=== PATIENT | male | born 1945 | race Caucasian/White ===

== ENCOUNTER 2018-10-22 13:06 | Outpatient (CLI) | payer MEDICARE ==
[2018-10-22 14:34] LABS: BASOPHILS # (AUTO) 0.02 x10^3/uL (0-0.1); BASOPHILS % (AUTO) 0 % (0-1); EOSINOPHILS % (AUTO) 4 % (1-7); LYMPHOCYTES # (AUTO) 2.07 x10^3/uL (1-3.4); LYMPHOCYTES % (AUTO) 30 % (22-44); MD NO; MEAN CORPUSCULAR HEMOGLOBIN 31.1 pg (27.5-34.5); MEAN CORPUSCULAR HGB CONC 34.6 g/dL (33.2-36.2); MEAN CORPUSCULAR VOLUME 89.8 fL (81-97); MEAN PLATELET VOLUME 8.1 fL (7.4-10.4); MONOCYTES # (AUTO) 0.55 x10^3/uL (0.2-0.8); MONOCYTES % (AUTO) 8 % (2-9); NEUTROPHILS # (AUTO) 4.05 x10^3/uL (1.8-6.8); NEUTROPHILS % (AUTO) 58 % (42-75); PLATELET COUNT 206 x10^3/uL (130-400); RED BLOOD COUNT 4.54 x10^6/uL (4.38-5.82); RED CELL DISTRIBUTION WIDTH 13.7 % (9.4-14.8)
[2018-10-22 14:38] LABS: MICROSCOPIC NOT IND
[2018-10-22 14:40] LABS: INTERNATIONAL NORMALIZED RATIO 0.99 (0.93-1.1); PROTHROMBIN TIME 10.4 Seconds (9.6-11.5)
[2018-10-22 14:41] LABS: CULTURE INDICATED? NO
[2018-10-22 14:43] LABS: ALANINE AMINOTRANSFERASE 34 U/L (12-78); ALBUMIN 3.9 g/dL (3.4-5.0); ANION GAP 7 mmol/L (5-15); CALCIUM 8.8 mg/dL (8.5-10.1); CHLORIDE 105 mmol/L (98-107); CREATININE 1.38 mg/dL (0.7-1.3)
[2018-10-22 14:45] LABS: ALKALINE PHOSPHATASE 74 U/L (45-117); BILIRUBIN,TOTAL 0.7 mg/dL (0.2-1.0); TOTAL PROTEIN 7.1 g/dL (6.4-8.2)
[2018-10-28] MEDS ORDERED: ROSU10TA2 PO (08:30)
[2018-10-28] MEDS ORDERED: OMEP40CA6 PO (08:30)
[2018-10-28] MEDS ORDERED: TERA1CAP3 PO (08:30)
[2018-10-28] MEDS ORDERED: METF500T17 PO (08:30)
== END 2018-10-22 23:59 | disposition home or self-care (01) ==
LOC: STAR 13:06
PROVIDERS: ATTEND Neurological Surgery
DX: Z01.818 Encounter for other preprocedural examination (principal); M43.16 Spondylolisthesis, lumbar region; M48.062 Spinal stenosis, lumbar region with neurogenic claudication; Z98.890 Other specified postprocedural states
CPT/HCPCS: 36415; 71046; 80053; 81003; 85025; 85610; 85730; 93005

== ENCOUNTER 2018-10-29 05:13 | Inpatient (IN) | payer MEDICARE ==
[2018-10-22 14:53] VITALS: BP 169/98
[~2018-10-29] VITALS: Ht 177.8 cm; Wt 55.4 kg
[~2018-10-29 05:13] MED LIST: METF500T17 PO; OMEP40CA6 PO; ROSU10TA2 PO; TERA1CAP3 PO
[2018-10-29] MEDS ORDERED: LACTATED RINGERS 1,000 ML IV SCH (06:01)
[2018-10-29] MEDS ORDERED: MICROFIBRILLAR COLLAGEN 1 GM TP ONE (06:35)
[2018-10-29] MEDS ORDERED: BUPIVACAINE/EPI 0.5% 1:200K ONE (06:35)
[2018-10-29] MEDS ORDERED: VANCOMYCIN 1,000 MG ONE (06:36)
[2018-10-29] MEDS ORDERED: BACITRACIN 50,000 UNIT ONE (06:36)
[2018-10-29] MEDS ORDERED: THROMBIN 5,000 UNIT VIAL TP ONE (06:36)
[2018-10-29] MEDS ORDERED: FENTANYL PF 250 MCG/5ML ONE (06:52)
[2018-10-29] MEDS ORDERED: MIDAZOLAM 1 MG/ML, 2ML ONE (06:52)
[2018-10-29] MEDS ORDERED: PROPOFOL 50 ML ONE (06:55)
[2018-10-29] MEDS ORDERED: ROCURONIUM 10 MG/ML,10ML ONE (06:57)
[2018-10-29] MEDS ORDERED: SUCCINYLCHOLINE 20 MG/ML, 10ML ONE (06:57)
[2018-10-29] MEDS ORDERED: ACETAMINOPHEN 500 MG TABLET PO ONE (07:00)
[2018-10-29] MEDS ORDERED: GABAPENTIN 300 MG CAPSULE PO ONE (07:00)
[2018-10-29] MEDS ORDERED: MEPERIDINE/PF 25MG/0.5ML IVPush PRN (08:00)
[2018-10-29] MEDS ORDERED: OXYcodone 5 MG/5 ML ORAL.SOL UDC PO PRN (08:00)
[2018-10-29] MEDS ORDERED: PROMETHAZINE 25 MG/ML, 1ML IV PRN (08:00)
[2018-10-29] MEDS ORDERED: MIDAZOLAM 1 MG/ML, 2ML IV PRN (08:00)
[2018-10-29] MEDS ORDERED: ALBUTEROL/IPRATROPIUM 2.5MG/0.5MG, 3 ML NPPB PRN (08:00)
[2018-10-29] MEDS ORDERED: ONDANSETRON ODT 8 MG PO PRN (08:00)
[2018-10-29] MEDS ORDERED: METOPROLOL 1 MG/ML, 5ML IV PRN (08:00)
[2018-10-29] MEDS ORDERED: hydrALAzine 20 MG/ML, 1ML IV PRN (08:00)
[2018-10-29] MEDS ORDERED: CEFAZOLIN 1,000 MG ONE (08:15)
[2018-10-29] MEDS ORDERED: DEXAMETHASONE 4 MG/ML, 1ML ONE (08:15)
[2018-10-29] MEDS ORDERED: PROPOFOL 10 MG/ML, 20ML ONE (08:15)
[2018-10-29] MEDS ORDERED: ONDANSETRON 2MG/ML, 2ML ONE (08:15)
[2018-10-29] MEDS ORDERED: FENTANYL PF 100 MCG/2ML ONE (08:34)
[2018-10-29] MEDS ORDERED: OXYcodone 5 MG/5 ML ORAL.SOL UDC ONE (08:34)
[2018-10-29] MEDS ORDERED: HYDROmorphone 2 MG/ML, 1ML ONE (08:34)
[2018-10-29] MEDS: FENTANYL PF 100 MCG/2ML IV PRN ×2 (08:36→08:48)
[2018-10-29] MEDS: HYDROmorphone 2 MG/ML, 1ML IVPush PRN ×4 (08:38→09:13)
[2018-10-29] MEDS ORDERED: METHOCARBAMOL 750 MG TABLET ONE (09:03)
[2018-10-29] MEDS ORDERED: hydrALAzine 20 MG/ML, 1ML ONE (09:16)
[2018-10-29] MEDS ORDERED: MEPERIDINE/PF 25MG/ML,1ML ONE (09:16)
[2018-10-29] MEDS ORDERED: METHOCARBAMOL 750 MG TABLET PO ONE (09:30)
[2018-10-29 09:55] VITALS: BP 144/85
[2018-10-29] MEDS ORDERED: DIPHENHYDRAMINE 50 MG/ML, 1ML IM PRN (10:30)
[2018-10-29] MEDS ORDERED: HYDROmorphone 2 MG/ML, 1ML IM PRN (10:30)
[2018-10-29] MEDS ORDERED: DIPHENHYDRAMINE 50 MG CAPSULE PO PRN (10:30)
[2018-10-29] MEDS ORDERED: MAGNESIUM HYDROXIDE 8%, 30ML UDC PO PRN (10:30)
[2018-10-29] MEDS ORDERED: ONDANSETRON 2MG/ML, 2ML IV PRN (10:30)
[2018-10-29] MEDS ORDERED: BISACODYL 10 MG SUPP PR PRN (10:30)
[2018-10-29] MEDS ORDERED: PROMETHAZINE 25 MG/ML, 1ML IM PRN (10:30)
[2018-10-29] MEDS ORDERED: METHOCARBAMOL 750 MG TABLET PO PRN (10:30)
[2018-10-29] MEDS ORDERED: HYDROmorphone 2MG TABLET PO PRN (10:30)
[2018-10-29] MEDS: INSULIN REGULAR 100 UNITS/ML, 3ML VIAL SQ-INSULIN SCH ×3 (11:00→20:58)
[2018-10-29] MEDS ORDERED: OXYcodone/APAP 5/325MG TABLET PO PRN (11:30)
[2018-10-29] MEDS: NS + 20MEQ KCL 1,000 ML IV SCH ×2 (11:56→22:23)
[2018-10-29] MEDS: HYDROcodone/APAP 10/325 MG TABLET PO PRN ×2 (12:02→20:53)
[2018-10-29 13:40] VITALS: BP 136/82
[2018-10-29] MEDS: metFORMIN 500 MG TABLET PO SCH (17:11)
[2018-10-29] MEDS: CEFAZOLIN PMX 1GM/50ML 50 ML IVPB SCH (17:11)
[2018-10-29 19:57] VITALS: BP 120/78
[2018-10-29] MEDS: TERAZOSIN 1MG CAPSULE PO SCH (20:54)
[2018-10-29] MEDS: ATORVASTATIN 20 MG TABLET PO SCH (20:54)
[2018-10-30 00:16] VITALS: BP 113/53
[2018-10-30] MEDS: CEFAZOLIN PMX 1GM/50ML 50 ML IVPB SCH ×2 (00:58→16:51)
[2018-10-30 04:01] VITALS: BP 126/72
[2018-10-30 05:10] LABS: BASOPHILS # (AUTO) 0.04 x10^3/uL (0-0.1); BASOPHILS % (AUTO) 0 % (0-1); EOSINOPHILS # (AUTO) 0.02 x10^3/uL (0-0.4); EOSINOPHILS % (AUTO) 0 % (1-7); LYMPHOCYTES # (AUTO) 1.62 x10^3/uL (1-3.4); LYMPHOCYTES % (AUTO) 15 % (22-44); MD NO; MEAN CORPUSCULAR HEMOGLOBIN 30.4 pg (27.5-34.5); MEAN CORPUSCULAR HGB CONC 33.8 g/dL (33.2-36.2); MEAN CORPUSCULAR VOLUME 89.8 fL (81-97); MEAN PLATELET VOLUME 7.5 fL (7.4-10.4); MONOCYTES # (AUTO) 0.77 x10^3/uL (0.2-0.8); MONOCYTES % (AUTO) 7 % (2-9); NEUTROPHILS % (AUTO) 78 % (42-75); PLATELET COUNT 198 x10^3/uL (130-400); RED BLOOD COUNT 4.04 x10^6/uL (4.38-5.82); RED CELL DISTRIBUTION WIDTH 13.5 % (9.4-14.8)
[2018-10-30 05:21] LABS: ALBUMIN 3.2 g/dL (3.4-5.0); ANION GAP 6 mmol/L (5-15); CHLORIDE 112 mmol/L (98-107)
[2018-10-30 05:23] LABS: CREATININE 1.43 mg/dL (0.7-1.3)
[2018-10-30] MEDS: OMEPRAZOLE 20 MG CAPSULE.DR PO SCH (06:00)
[2018-10-30] MEDS: INSULIN REGULAR 100 UNITS/ML, 3ML VIAL SQ-INSULIN SCH ×4 (07:00→20:25)
[2018-10-30] MEDS: SENNA/DOCUSATE TABLET PO SCH (07:23)
[2018-10-30] MEDS: metFORMIN 500 MG TABLET PO SCH ×2 (07:24→16:49)
[2018-10-30 07:30] VITALS: BP 133/73
[2018-10-30] MEDS: NS + 20MEQ KCL 1,000 ML IV SCH ×3 (08:00→23:30)
[2018-10-30] MEDS ORDERED: FENTANYL PF 250 MCG/5ML ONE (08:40)
[2018-10-30] MEDS ORDERED: MIDAZOLAM 1 MG/ML, 2ML ONE (08:40)
[2018-10-30] MEDS ORDERED: PROPOFOL 50 ML ONE ×2 (08:47→10:35)
[2018-10-30] MEDS ORDERED: DEXAMETHASONE 4 MG/ML, 1ML ONE ×2 (08:51)
[2018-10-30] MEDS ORDERED: BUPIVACAINE/PF 0.5% ONE (09:21)
[2018-10-30] MEDS ORDERED: BACITRACIN 50,000 UNIT ONE (09:21)
[2018-10-30] MEDS ORDERED: EPINEPHRINE 1 MG/ML, 1ML ONE (09:21)
[2018-10-30] MEDS ORDERED: VANCOMYCIN 1,000 MG ONE (09:21)
[2018-10-30] MEDS ORDERED: THROMBIN 20,000 UNIT VIAL TP ONE (09:21)
[2018-10-30] MEDS ORDERED: CEFAZOLIN 1,000 MG ONE (09:26)
[2018-10-30] MEDS ORDERED: KETAMINE 10 MG/ML, 20ML ONE (09:26)
[2018-10-30] MEDS ORDERED: ONDANSETRON 2MG/ML, 2ML ONE (09:26)
[2018-10-30] MEDS ORDERED: PHENYLEPHRINE 10 MG/ML ONE (09:26)
[2018-10-30] MEDS ORDERED: ACETAMINOPHEN 325 MG TABLET PO PRN (10:30)
[2018-10-30] MEDS ORDERED: MEPERIDINE/PF 25MG/0.5ML IVPush PRN (10:30)
[2018-10-30] MEDS ORDERED: DIAZEPAM 5 MG/ML, 2ML IVPush PRN (10:30)
[2018-10-30] MEDS ORDERED: HALOPERIDOL 5 MG/ML IV PRN (10:30)
[2018-10-30] MEDS ORDERED: OXYcodone 5 MG/5 ML ORAL.SOL UDC PO PRN (10:30)
[2018-10-30] MEDS ORDERED: PROMETHAZINE 25 MG/ML, 1ML IV PRN (10:30)
[2018-10-30] MEDS ORDERED: hydrALAzine 20 MG/ML, 1ML IV PRN (10:30)
[2018-10-30] MEDS ORDERED: HYDROmorphone 2 MG/ML, 1ML IVPush PRN (10:30)
[2018-10-30] MEDS ORDERED: ACETAMINOPHEN 650 MG/20.3 ML UDC ONE (11:54)
[2018-10-30] MEDS ORDERED: METHOCARBAMOL 750 MG TABLET ONE (11:54)
[2018-10-30] MEDS ORDERED: FENTANYL PF 100 MCG/2ML ONE (11:54)
[2018-10-30] MEDS ORDERED: OXYcodone 5 MG/5 ML ORAL.SOL UDC ONE (11:54)
[2018-10-30] MEDS: FENTANYL PF 100 MCG/2ML IV PRN ×4 (12:00→12:27)
[2018-10-30 13:26] VITALS: BP 137/83
[2018-10-30 18:41] VITALS: BP 127/70
[2018-10-30] MEDS: HYDROcodone/APAP 10/325 MG TABLET PO PRN (20:24)
[2018-10-30] MEDS: ATORVASTATIN 20 MG TABLET PO SCH (20:24)
[2018-10-30] MEDS: TERAZOSIN 1MG CAPSULE PO SCH (20:25)
[2018-10-31 00:19] VITALS: BP 112/62
[2018-10-31] MEDS: CEFAZOLIN PMX 1GM/50ML 50 ML IVPB SCH (01:33)
[2018-10-31] MEDS: HYDROcodone/APAP 10/325 MG TABLET PO PRN ×3 (01:40→10:20)
[2018-10-31 04:16] VITALS: BP 137/71
[2018-10-31 05:17] LABS: BASOPHILS # (AUTO) 0.01 x10^3/uL (0-0.1); BASOPHILS % (AUTO) 0 % (0-1); EOSINOPHILS # (AUTO) 0.01 x10^3/uL (0-0.4); EOSINOPHILS % (AUTO) 0 % (1-7); LYMPHOCYTES # (AUTO) 1.87 x10^3/uL (1-3.4); LYMPHOCYTES % (AUTO) 20 % (22-44); MD NO; MEAN CORPUSCULAR HEMOGLOBIN 31.3 pg (27.5-34.5); MEAN CORPUSCULAR HGB CONC 34.6 g/dL (33.2-36.2); MEAN CORPUSCULAR VOLUME 90.4 fL (81-97); MEAN PLATELET VOLUME 7.8 fL (7.4-10.4); MONOCYTES # (AUTO) 0.72 x10^3/uL (0.2-0.8); MONOCYTES % (AUTO) 8 % (2-9); NEUTROPHILS % (AUTO) 72 % (42-75); PLATELET COUNT 182 x10^3/uL (130-400); RED CELL DISTRIBUTION WIDTH 13.7 % (9.4-14.8)
[2018-10-31] MEDS ORDERED: ENOXAPARIN 40 MG/0.4 ML SQ SCH (06:00)
[2018-10-31] MEDS: OMEPRAZOLE 20 MG CAPSULE.DR PO SCH (06:12)
[2018-10-31] MEDS: INSULIN REGULAR 100 UNITS/ML, 3ML VIAL SQ-INSULIN SCH ×2 (06:17→11:00)
[2018-10-31] MEDS: SENNA/DOCUSATE TABLET PO SCH (07:47)
[2018-10-31] MEDS: metFORMIN 500 MG TABLET PO SCH (07:47)
[2018-10-31 08:00] VITALS: BP 114/63
[2018-10-31] MEDS: NS + 20MEQ KCL 1,000 ML IV SCH (09:30)
[2018-10-31 09:45] VITALS: BP 118/68
[2018-10-31 11:36] VITALS: BP 129/74
[2018-10-31] MEDS ORDERED: HYDR-3307 PO (11:58)
[2018-10-31] MEDS ORDERED: METH750T87 PO (11:58)
[2018-10-31] MEDS ORDERED: SENN-31 PO (12:02)
== END 2018-10-31 12:41 | disposition home or self-care (01) | DRG 454 ==
LOC: ORIP 05:13 → 4NOR 09:53 → DCLOUNGE 10-31 12:26
PROVIDERS: ADMIT Neurological Surgery; ATTEND Neurological Surgery
PROC: 0QB00ZZ Excision of Lumbar Vertebra, Open Approach (ICD-10-PCS; 2018-10-29)
PROC: 01NB0ZZ Release Lumbar Nerve, Open Approach (ICD-10-PCS; 2018-10-29)
PROC: 4A11X4G Monitoring of Peripheral Nervous Electrical Activity, Intraoperative, External Approach (ICD-10-PCS; 2018-10-29)
PROC: 0SG0071 Fusion of Lumbar Vertebral Joint with Autologous Tissue Substitute, Posterior Approach, Posterior Column, Open Approach (ICD-10-PCS; principal; 2018-10-29 07:00)
PROC: 0SG00AJ Fusion of Lumbar Vertebral Joint with Interbody Fusion Device, Posterior Approach, Anterior Column, Open Approach (ICD-10-PCS; 2018-10-30)
PROC: 01NB0ZZ Release Lumbar Nerve, Open Approach (ICD-10-PCS; 2018-10-30)
PROC: 4A11X4G Monitoring of Peripheral Nervous Electrical Activity, Intraoperative, External Approach (ICD-10-PCS; 2018-10-30)
DX: M48.062 Spinal stenosis, lumbar region with neurogenic claudication (principal); N17.9 Acute kidney failure, unspecified; M51.16 Intervertebral disc disorders with radiculopathy, lumbar region; M25.78 Osteophyte, vertebrae; I10 Essential (primary) hypertension; E11.9 Type 2 diabetes mellitus without complications; G47.33 Obstructive sleep apnea (adult) (pediatric); K21.9 Gastro-esophageal reflux disease without esophagitis; Z98.1 Arthrodesis status
CPT/HCPCS: 36415; 72100; 80048; 82040; 82962; 85025; 86850; 86900; C1713; C1729; G0378; J0171; J0690; J1100; J1170; J1650; J1815; J2175; J2250; J2405; J2704; J3010; J3370; J3480; C1763; C1769; J0330; J0360; J2370; J7120